=== PATIENT | male | born 1945 | race Caucasian/White ===

== ENCOUNTER 2016-07-28 15:00 | Inpatient (IN) | payer MEDICARE, BC ==
[~2016-07-28] VITALS: Ht 177.8 cm; Wt 98.0 kg
--- NOTE | ~2016-07-28 | ECHO ---
Transthoracic Echocardiography Report (TTE) Demographics Patient Name DHIRAJ RAMIREZ Date of Study 08/02/2016 Patient Number [id number] Visit Number [id number] Date of 1945 Room Number G6399 Accession Number [id number] Gender Male Age 70 year(s) Referring Aretha Geiger Corrective Therapy Aide Teacher Teresa Agustin RVT, Physician RDCS Physician Interpreting Sammy Guerrero Database Administration Associate Physician MD Supervising Ordering Physician Sammy Guerrero MD/MLP Nurse Stress Sound Assistant Conclusions Contractility Score Summary Normal Left Ventricular contractility was noted. Summary The estimated left ventricular ejection fraction is 55% with normal WM and internal dimension.Mild concentric left ventricular hypertrophy. The left atrium is moderately dilated. The right atrium is mildly dilated. Increased pressures in the atria. The aortic valve is moderately sclerotic. There is mild aortic regurgitation by color Doppler. Mild tricuspid regurgitation by color Doppler. There is moderate pulmonary hypertension. The pulmonary pressure (RVSP) is 45 mmHg. The ascending aorta appears mildly dilated. The maximum diameter measures 3.9 cm. Procedure Type of Study TTE procedure:2D Echocardiogram. Procedure Date Date: 08/02/2016 Start: 09:10 AM Study Location: Inpatient Portable Technical Quality: Adequate visualization Indications:Atrial fibrillation. Appropriate Use Criteria: 9 Patient Status: Routine Rhythm: Atrial fibrillation HR: 66 bpm BP: 138/77 mmHg M-Mode/2D Measurements LV Diastolic Dimension: 4.81 cm LV Systolic Dimension: 3.49 cm LV Septum Diastolic: 1.33 cm LV PW Diastolic: 1.33 cm AO Root Dimension: 3.3 cm Cardiac Output: 3.27 l/min AV Cusp Separation: 1.6 cm RV Diastolic Dimension: 3.47 cm LA volume: 90 ml LVOT: 2.1 cm RV Base: 3.78 cm LVOT VTI: 14.3 cm RV Mid: 3.56 cm LV Stroke volume: 49.5 ml TAPSE: 2.22 cm TDI-S': 12.1 cm/s Doppler Measurements AV Peak Velocity: 1.36 m/s MV Peak E-Wave: 1.04 m/s AV Peak Gradient: 7.4 mmHg AV Mean Gradient: 5 mmHg LVOT Peak Velocity: 0.65 m/s PV Peak Velocity: 1.01 m/s TR Velocity:3.05 m/s PV Peak Gradient: 4.08 mmHg TR Gradient:37.21 mmHg Estimated PASP: 45.21 mmHg Estimated RAP:8 mmHg A' Lateral Velocity: 0.06 m/s Estimated RVSP: 45 mmHg E' Septal Velocity: 0.11 m/s E' Lateral Velocity: 0.15 m/s Findings Left Ventricle Mild concentric left ventricular hypertrophy with normal internal dimensions,EF and WM. Right Ventricle Normal right ventricle structure and function. Left Atrium The left atrium is moderately dilated. There is no evidence of patent foramen ovale or atrial septal defect by color Doppler. Increased LA pressures. Right Atrium The right atrium is mildly dilated. Dilated IVC with poor inspiratory collapse consistent with elevated RA pressure. Mitral Valve Normal mitral valve structure and function. Trivial mitral regurgitation by color Doppler. Aortic Valve The aortic valve is moderately sclerotic. There is mild aortic regurgitation by color Doppler. Tricuspid Valve Mild tricuspid regurgitation by color Doppler. There is moderate pulmonary hypertension. The pulmonary pressure (RVSP) is 45 mmHg. Pulmonic Valve Normal pulmonic valve structure and function. Trivial pulmonic valve regurgitation by color Doppler. Pericardial Effusion No evidence of pericardial effusion. Miscellaneous The ascending aorta appears mildly dilated. The maximum diameter measures 3.9 cm. Pleural Effusion No evidence of pleural effusion. Contractility Score LV regional wall motion:(0-Non visualized 1-Normal 2-Hypokinesis 3-Akinesis 4-Dyskinesis 5-Aneurysm) Signature dtt: Yolanda Christianson dtd: 08/02/16 0910 Physician Self Edit
--- NOTE | ~2016-07-28 | ESTC ---
Cardiac Perfusion Imaging Demographics Patient Name JAMES Briones JR Gender Male Patient Number [id number] Race Visit Number [id number] Ethnicity Corporate ID Room Number G6399 Accession Number [id number] Height 70 inches Date of 1945 Weight 216 pounds Interpreting Sammy Guerrero Date of study 08/02/2016 Physician Supervising /AMINAH Guerrero NM Technologist Poppy Kenney MD Ordering Physician Sammy Guerrero Stress Teresa Agustin RVT, MD hvac refrigeration technician RDCS Stress ECG Reading Sammy Guerrero Nurse Rosalio Robbins RN Physician Procedure Admit Source:Other. Procedure Type: Nuclear Stress Test:Cardiolite Stress Test Procedure Start time: 08/02/2016 09:40 Indications: Atrial fibrillation. Risk Factors The patient risk factors include:physical activity, former tobacco use, treated hypercholesterolemia, treated hypertension, orally-treated diabetes mellitus and ( years not smokin). Conclusions Summary Inferior large moderate to severe fixed defect at least the basal third of which is most consistent prior AK. No ischemia. Normal EF and moderate hypokinesia of the basal third of the inferior wall. Stress Protocols Resting ECG A fib with cvr. Pre-stress physical exam: Un changed. Predicted HR: 151 bpm ECG Findings No ECG changes suggestive of ischemia. Arrhythmias No rhythm abnormality. Symptoms Flushed. SOB. Dizziness. Stress Interpretation Lexiscan cardiolite study with hypertensive response. Baseline afib with no other arrythmias. No ischemia. Imaging Results High risk findings Summed scores - Summed stress score: 8 - Summed rest score: 10 - Summed difference score: -2 Stress ejection Ejection fraction:59 % EDV :161 ml ESV :66 ml Stroke volume :95 ml LV mass :195 gr LV size:Enlarged LV Normal LV function Imaging Protocols Rest Stress Isotope:Tc99m Sestamibi IV Isotope: Tc99m Sestamibi IV Isotope dose:14.7 mCi Isotope dose:42.7 mCi Date:08/02/2016 10:05 Date:08/02/2016 11:48 Technique: SPECT Technique: Gated Supine SPECT Supine IV remains in place after procedure. Scan Time:45-60 minutes post Scan Time:45-60 minutes post injection injection Procedure Medications - Regadenoson (Lexiscan) 0.4 mg IV over 10-15 sec. I.V. 0.4 mg. Medical History Admission Data Admission date: 08/02/2016 Admission Time: 05:44 Hospital Status: Inpatient. Signatures dtt: Yolanda Christianson dtd: 08/02/16 0940 Physician Self Edit
--- NOTE | ~2016-07-28 | CON ---
PATIENT'S NAME: JAMES [facility] AGE: 70 Y [address] ROOM: G6399 [place], [place] [address] LOCATION: [facility] ADMIT DATE: 08/02/2016 Consultation DISCHARGE DATE: FAMILY PHYSICIAN: Kelton Carias MD ATTENDING PHYSICIAN: LING NICHOLSON DATE OF CONSULTATION: 08/02/2016 REFERRING PHYSICIAN: Alpesh Fregoso, DO A patient of Dr. Kelton Carias. Mr. Paez is a 70-year-old, male patient who was in the preop clinic for nephrectomy and biopsy of mediastinal mass by Dr. Fregoso. He was found to be in atrial fibrillation with controlled ventricular response and I was consulted regarding that. The patient is totally asymptomatic of the atrial fibrillation and does not know that he is in atrial fibrillation at this time. He denies [place] or angina or nitroglycerin use. There is no history of rheumatic fever, heart murmur, heart failure, dilated or enlarged heart, or any diagnosed arrhythmias up until now. The patient has history of hypertension, type 2 diabetes, elevated cholesterol. He denies tobacco abuse or family history of premature coronary artery disease. The patient denies any chest pains. 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 Prior to that, he has been limited by the left knee, which has been replaced about a couple years ago. It appears as if he walks at the most at his own pace 2-3 blocks without any problems of chest pains or shortness of breath. Going up a flight of stairs sometime makes him short of breath. Currently, he is in functional class 2-3. There is no paroxysmal nocturnal dyspnea or orthopnea. He denies lightheadedness, dizziness syncope, presyncope, palpitations, or ankle swelling. He also has gout. MEDICATIONS: 1. Allopurinol 300 mg a day. 2. Theophylline 400 mg every morning. 3. Celebrex 200 mg a day. 4. Tamsulosin 0.4 mg a day. 5. Metformin 1 g b.i.d. PATIENT'S NAME: JAMES [facility] AGE: 70 Y [address] ROOM: [place] [address] LOCATION: [facility] ADMIT DATE: 08/02/2016 Consultation DISCHARGE DATE: FAMILY PHYSICIAN: Kelton Carias MD ATTENDING PHYSICIAN: LING NICHOLSON 6. Propranolol 10 mg once a day. 7. Atorvastatin 10 mg a day. ALLERGIES: NO KNOWN ALLERGIES. PAST MEDICAL HISTORY: 1. Ascending thoracic aneurysm 4.4 x 4.4 cm. 2. Right renal cancer. 3. Right lower lung lobe nodule. 4. Patient currently chews tobacco. 5. Total knee replacement on the left. 6. Neck surgery. 7. Tonsillectomy. 8. Intentional tremor. 9. DJD. 10. Asthma. 11. Cervical disc disease. 12. Chronic low back pain. 13. Colonic polyps. 14. Constipation. 15. Gout. SOCIAL HISTORY: The patient is . He denies abusing alcohol. His appetite and weight have been stable. Sleep is fair. FAMILY HISTORY: No premature coronary artery disease. REVIEW OF SYSTEMS: A 12-point review of systems revealed the following positives: 1. Intermittent headaches. 2. Corrective lenses. 3. The patient wears hearing aids. 4. DJD. PHYSICAL EXAMINATION: VITAL SIGNS: On examination, his blood pressure is 130/80, heart rate is in the 60s and 70s and irregular, respirations 18, afebrile. HEENT: Normal. NECK: Supple with no JVD, thyromegaly, lymphadenopathy, or carotid bruit. CARDIAC: PMI is not well located. First and second heart sounds are irregular. There are no added sounds or murmurs. CHEST: Clear to auscultation. PATIENT'S NAME: DHIRAJ PAEZ [facility] AGE: 70 Y [address] ROOM: [address] [address] LOCATION: [facility] ADMIT DATE: 08/02/2016 Consultation DISCHARGE DATE: FAMILY PHYSICIAN: Kelton Carias MD ATTENDING PHYSICIAN: LING NICHOLSON ABDOMEN: Soft and obese. EXTREMITIES: Reveal no edema. CENTRAL NERVOUS SYSTEM: Intact. ASSESSMENT: Preop evaluation for atrial fibrillation with controlled ventricular response of which he is completely asymptomatic. His CHADS2-VASc score is 3 at this time. He has renal mass for which he is here for nephrectomy and is also getting a biopsy of the mediastinal mass. We will obtain his echocardiogram, TSH, proBNP, D-dimer, and troponin and also I will go ahead and get a Lexiscan Cardiolite study done if the troponins are negative. Again, I appreciate this opportunity to participate in the care of Mr. Paez. The reason for the stress test is because of the preop evaluation for intermediate risk surgery and his functional capacity is less than 4 METS and he is mildly short of breath. MD PATIENCE SMART/paul /[id number] d: 08/02/165 t: 08/03/16 1901, CONSULTATION REPORT
[~2016-07-28 15:00] MED LIST: CELEBREX200 MG PO; FLOMAX0.4 MG PO; GLUCOPHAGE1000 MG PO; INDERAL10 MG PO; LIPITOR40 MG PO; THEOPHYLLINE400 MG PO; ZYLOPRIM300 MG PO
[2016-08-02 06:13] LABS: BASOPHIL % 0.5 %; EOSINOPHIL # 0.2 K/uL (0.0-0.5); EOSINOPHIL % 3.3 %; HEMATOCRIT 38.6 % (37.0-53.0); HEMOGLOBIN 12.8 g/dL (11.0-16.0); IMMATURE GRANULOCYTE % 0.4 %; LYMPHOCYTE # 1.5 K/uL (0.8-4.0); LYMPHOCYTE % 26.1 %; MCH 28.8 pg (27.0-34.0); MCHC 33.2 gm/dL (32.0-36.5); MCV 86.9 fl (83.0-98.0); MONOCYTE # 0.5 K/uL (0.0-1.0); MONOCYTE % 7.9 %; MPV 10.8 fl (9.4-12.4); NEUTROPHIL # (ANC) 3.5 K/uL (1.4-9.0); NEUTROPHIL % 61.8 %; NRBC % 0 /100WBC (0-0.00); PLATELET COUNT 173 K/uL (150-450); RBC 4.44 M/uL (3.50-5.50); RDW-CV 12.7 % (11.9-14.6); WBC 5.7 K/uL (4.0-11.0)
[2016-08-02 06:33] LABS: ALBUMIN 3.9 gm/dL (3.5-5.0); ANION GAP 11.1 (10.0-19.0); CALCIUM 9.2 mg/dL (8.5-10.5); CREATININE 1.2 mg/dL (0.6-1.3); POTASSIUM 4.1 mMol/L (3.7-5.1); TOTAL BILIRUBIN 0.6 mg/dL (0.0-1.5); TOTAL PROTEIN 7.2 g/dL (6.0-8.4)
--- NOTE | 2016-08-02 14:58 | NUR ---
d: pt to nuclear med x 2 for cardiolite studies per wheelchair. takes po food/fluids. family at side. updated at intervals. awaiting Dr. Christianson to interpret scan and determine disposition of patient.
[2016-08-02] MEDS ORDERED: ALDACTONE25 MG PO (17:29)
[2016-08-02] MEDS ORDERED: COMBIVENT RESPIM4 GM INH (17:31)
== END 2016-08-02 17:52 | disposition disaster alternative care site (69) | DRG 310 ==
LOC: GPCU 08-02 05:44
PROVIDERS: ADMIT Urology
DX: I48.91 Unspecified atrial fibrillation (principal); I10 Essential (primary) hypertension; N28.89 Other specified disorders of kidney and ureter; E11.9 Type 2 diabetes mellitus without complications; F17.220 Nicotine dependence, chewing tobacco, uncomplicated; M10.9 Gout, unspecified; Z79.84 Long term (current) use of oral hypoglycemic drugs; I51.7 Cardiomegaly; J98.01 Acute bronchospasm
CPT/HCPCS: A9500; J0690; J2001; J2785; J7030

== ENCOUNTER 2016-08-05 11:00 | Inpatient (IN) | payer MEDICARE, BC ==
[~2016-08-05] VITALS: Ht 177.8 cm; Wt 102.3 kg
--- NOTE | ~2016-08-05 | CON ---
PATIENT'S NAME: DHIRAJ PAEZ [facility] AGE: 70 Y [address] ROOM: [place] [address] LOCATION: [facility] [place] ADMIT DATE: 08/09/2016 Consultation DISCHARGE DATE: 08/13/2016 FAMILY PHYSICIAN: Kelton Carias MD ATTENDING PHYSICIAN: Alfredo Pierce DATE OF CONSULTATION: 08/09/2016 REFERRING PHYSICIAN: Hector Steele MD HISTORY OF PRESENT ILLNESS: Mr. Paez is a 70-year-old male patient whom I saw on the when he came in for pre-nephrectomy for renal mass and mediastinal biopsy by Dr. Fregoso. At that time, he was found to be in atrial fibrillation with controlled ventricular response. His evaluation revealed elevated D-dimer with no evidence of PE on his CT chest. His proBNP was elevated a little bit. In addition, he also had a normal TSH and normal ejection fraction without any wall motion abnormalities. The patient had history of hypertension, type 2 diabetes, and elevated cholesterol. Obviously, he had some evidence of sick sinus syndrome because he was in controlled ventricular response without any AV peter blocking agents. His [id number] score was 3. He also has gout. He was discharged home with his usual medications which were: 1. Allopurinol 300 mg a day. 2. Theophylline 400 mg every morning. 3. Tamsulosin 0.4 mg. 4. Metformin 1 g b.i.d. 5. Discontinue Celebrex. 6. Propranolol 10 mg a day. 7. Atorvastatin 40 mg a day, which was an increased does. 8. I had added on Aldactone because of the elevated proBNP. ALLERGIES: HE HAD NO KNOWN ALLERGIES. PAST MEDICAL HISTORY: Includes: 1. Ascending thoracic aortic aneurysm, 4.4 x 4.4 cm. 2. Right renal cancer. PATIENT'S NAME: DHIRAJ PAEZ [facility] AGE: 70 Y [address] ROOM: [place] [address] LOCATION: [facility] [place] ADMIT DATE: 08/09/2016 Consultation DISCHARGE DATE: 08/13/2016 FAMILY PHYSICIAN: Kelton Carias MD ATTENDING PHYSICIAN: Alfredo Pierce 3. Right lower lobe nodule. 4. Currently, the patient chews tobacco. 5. Total knee replacement on the left. 6. Neck surgery. 7. Tonsillectomy. 8. Intentional tremor. 9. DJD. 10. Asthma. 11. Cervical disk disease. 12. Chronic low back pain. 13. Colonic polyps. 14. Constipation. SOCIAL HISTORY: The patient is . He denies abusing alcohol. His appetite and weight have been stable. Sleep is fair. FAMILY HISTORY: No premature coronary artery disease. REVIEW OF SYSTEMS: 1. Hearing aids. 2. DJD. 3. Corrective lenses. 4. Intermittent headaches. PHYSICAL EXAMINATION: VITAL SIGNS: On examination, his blood pressure is 160/80, heart rate is in the 60s and irregular, respiration rate is 18, and afebrile. HEENT: Normal. NECK: Supple with no JVD, thyromegaly, lymphadenopathy, or carotid bruit. CARDIAC: PMI is not well located. First and second heart sounds are irregular. There are no added sounds or murmurs. CHEST: Clear to auscultation. ABDOMEN: Soft, obese. EXTREMITIES: No edema. CENTRAL NERVOUS SYSTEM: Intact. ASSESSMENT: A 70-year-old diabetic patient with thoracic aortic aneurysm and history of atrial fibrillation with controlled ventricular response with just 10 mg of propranolol, consistent with sick sinus syndrome as well. I had increased his atorvastatin to 40 mg a day and added on Aldactone because of the elevated proBNP. PATIENT'S NAME: DHIRAJ PAEZ [facility] AGE: 70 Y [address] ROOM: [place] [address] LOCATION: [facility] [place] ADMIT DATE: 08/09/2016 Consultation DISCHARGE DATE: 08/13/2016 FAMILY PHYSICIAN: Kelton Carias MD ATTENDING PHYSICIAN: Alfredo Pierce He was kept off anticoagulation even though his [id number] score was 3 because the surgery was coming up quite quickly. Once the surgery is done, he will be placed on an oral anticoagulation for indefinite use for now unless he has a problem that arises in the future. Again, I appreciate this opportunity to participate in the care of Mr. Paez. His surgeons, when they are ready to have him take his oral anticoagulation, I will get him started on one depending on their wishes and after discussing with them. MD PATIENCE SMART/paul /[id number] d: 08/17/16 1913 t: 08/29/16 1605, CONSULTATION REPORT
--- NOTE | ~2016-08-05 | DS ---
PATIENT'S NAME: JAMES DHIRAJ Anali [facility] AGE: 70 Y [address] ROOM: [place] [address] [place] [facility] [place] DATE: 08/09/2016 Discharge Summary DISCHARGE DATE: 08/13/2016 FAMILY PHYSICIAN: Kelton Carias MD ATTENDING PHYSICIAN: Ling Pierce ADMISSION DIAGNOSES: 1. Right renal mass. 2. Mediastinal adenopathy. 3. Lung nodules. DISCHARGE DIAGNOSES: 1. Right renal mass. 2. Mediastinal adenopathy. 3. Lung nodules. REASON FOR HOSPITALIZATION: The patient is a pleasant 70-year-old male with history of right renal mass as well as mediastinal adenopathy and lung nodules concerning for possible metastasis. After discussing with the patient his options along with the risks, benefits, indications, and alternatives, the patient wished to proceed with a cytoreductive nephrectomy. PROCEDURES PERFORMED: 1. Cytoreductive right hand-assisted laparoscopic radical nephrectomy by Dr. Pierce. 2. Mediastinoscopy by Dr. Steele. 3. Bronchoscopy with endobronchial ultrasound, fine needle aspiration of lymph nodes, and bronchioalveolar lavage of left lower lobe by Dr. Turner. HOSPITAL COURSE: The patient was admitted on the above date and underwent the above-stated procedures without complication. The patient had a relatively uneventful hospital course. Prior to his discharge, he was passing flatus and tolerating regular diet. His pain was well controlled and he was ambulating without difficulty. CONDITION: Condition of the patient on discharge good. DISCHARGE INSTRUCTIONS: The patient did receive routine discharge instructions for the above procedures he underwent. LING PIERCE MD PATIENT'S NAME: JAMES DHIRAJ Anali [facility] AGE: 70 Y [address] ROOM: [place] [address] [place] [facility] [place] DATE: 08/09/2016 Discharge Summary DISCHARGE DATE: 08/13/2016 FAMILY PHYSICIAN: Kelton Carias MD ATTENDING PHYSICIAN: Ling Pierce GP/modl /[id number] d: 08/20/16 0245 t: 08/25/16 1513, DISCHARGE SUMMARY
--- NOTE | ~2016-08-05 | OR ---
PATIENT'S NAME: JAMES [facility] AGE: 70 Y [address] ROOM: [place] [address] LOCATION: [facility] [place] ADMIT DATE: 08/09/2016 OR/Procedure Report DISCHARGE DATE: FAMILY PHYSICIAN: Kelton Carias MD ATTENDING PHYSICIAN: LING NICHOLSON SURGEON: Wicho Turner MD DATE OF PROCEDURE: 08/12/2016 PROCEDURE CABLE INSTALLER REPAIRER: Verna Crowe, microelectronics technician. PROCEDURES PERFORMED: 1. Bronchoscopy with endobronchial ultrasound and fine-needle aspiration of 3 lymph node stations. 2. Bronchoscopy with bronchoalveolar lavage of the left lower lobe. INDICATIONS AND PREPROCEDURE DIAGNOSES: 1. Mediastinal adenopathy. 2. Lung nodule. 3. Renal cell carcinoma, status post nephrectomy. 4. History of neck surgery. 5. Cough. 6. Asthma. POSTPROCEDURE DIAGNOSES: 1. Mediastinal adenopathy. 2. Lung nodule. 3. Renal cell carcinoma, status post nephrectomy. 4. History of neck surgery. 5. Cough. 6. Asthma. CONSENT: Consent was obtained from the patient after all the indications, risks, benefits, and alternatives were explained at length. The patient verbalized understanding and signed an informed consent. DESCRIPTION OF PROCEDURE: The patient was taken to the endoscopy suite. Direct laryngoscopy done by the anesthesia team did not show adequate visualization of the vocal cords. That was most likely related to the previous neck surgery that the patient had had. For this reason, I advanced the endotracheal tube through the bronchoscope after I was able to advance the bronchoscope through the vocal cords into the distal trachea. The endotracheal tube was secured in place with the tip approximately 3 cm above the trevor. Afterwards, I performed a diagnostic bronchoscopy that showed a small amount of secretions in the distal trachea with moderate amount of PATIENT'S NAME: JAMES, [facility] AGE: 70 Y [address] ROOM: [place] [address] LOCATION: [facility] [place] ADMIT DATE: 08/09/2016 OR/Procedure Report DISCHARGE DATE: FAMILY PHYSICIAN: Kelton Carias MD ATTENDING PHYSICIAN: LING NICHOLSON secretions in the distal bronchial trees, especially in the left lower lobe. I suctioned all secretions that were light yellow in appearance. Afterwards, I performed a bronchoalveolar lavage from the left lower lobe. 60 mL of sterile saline was instilled, with return of 20 mL of slightly cloudy bronchoalveolar lavage fluid. There was no evidence of any endobronchial lesion down to the subsegmental level. The [id number] bronchoscope was withdrawn, and the bronchoscope with endobronchial ultrasound was advanced into the trachea and both bronchial trees. There were evidence of large mediastinal nodes in the paratracheal, subcarinal, and right hilar lymph node stations. I performed fine-needle aspiration with direct ultrasound guidance from these 3 stations. There was a small amount of bleeding at times that stopped without any further intervention. A total of 8 fine-needle aspirations were performed from these 3 lymph node stations. At the end of the procedure, I withdrew the bronchoscope with endobronchial ultrasound and performed another diagnostic bronchoscopy. The patient had minimal amount of blood clots, but without any active bleeding. The blood clots were suctioned using small saline aliquots at times. Again, there was no evidence of active bleeding at the end of the procedure. The bronchoscope was withdrawn, and the patient was returned to the anesthesia team for further management. COMPLICATIONS: None. ESTIMATED BLOOD LOSS: Less than 10 mL. SPECIMENS: The fine-needle aspirates will be sent for cytology examinations. Please note that a cytology photonics engineering technician was present in the room and reviewed a few fine-needle aspirates. She could not identify any malignant cells. The bronchoalveolar lavage will be sent for cytology and microbiology studies. MD VIDYA SERVIN/anaidl /[id number] d: 08/12/16 1509 t: 08/13/16 1154, OPERATIVE SUMMARY
--- NOTE | ~2016-08-05 | CON ---
PATIENT'S NAME: DHIRAJ RAMIREZ [facility] AGE: 70 Y [address] ROOM: [place] [address] LOCATION: [facility] ADMIT DATE: 08/09/2016 Consultation DISCHARGE DATE: 08/13/2016 FAMILY PHYSICIAN: Kelton Carias MD ATTENDING PHYSICIAN: Alfredo Pierce DATE OF CONSULTATION: 08/10/2016 REFERRING PHYSICIAN: Hector Steele MD INDICATION: Mediastinal adenopathy. HISTORY OF PRESENT ILLNESS: This is a 70-year-old male, who was admitted for renal mass and is status post right nephrectomy and also mediastinoscopy for mediastinal adenopathy. He had initially presented for hematuria and treated for an infection, and follow up with his primary care physician. A CT of the chest, pelvis, and abdomen was performed. CT of the chest noted on August 02, 2016, several scattered pulmonary nodules with mediastinal and hilar adenopathy. The mediastinoscopy was performed and unable to obtain biopsies. We are being asked to perform a bronchoscopy with endobronchial ultrasound, to obtain biopsies of the mediastinal node as there is concern for malignancy. Currently, the patient is on postop day 1 and denies any cough. He reports an occasional wheeze. He has mild shortness of breath secondary to postop pain which is fairly well controlled at this point. He denies any chest pain, hemoptysis, or edema. He denies any history of tobacco use. He does have a history of asthma since he was a child. He reports receiving an inhaler last week, but is unsure of which one. He has taken theophylline from several years. He denies any history of asthma exacerbations or hospital stays. He has never required intubation. PAST MEDICAL HISTORY: Includes diabetes, hyperlipidemia, gout, and asthma. ALLERGIES: SEE MAR. MEDICATIONS: See MAR. FAMILY HISTORY: The patient has a known family history of ovarian cancer in a sister. He denies any lung disease or heart disease. SOCIAL HISTORY: PATIENT'S NAME: DHIRAJ RAMIREZ [facility] AGE: 70 Y [address] ROOM: [place] [address] LOCATION: [facility] ADMIT DATE: 08/09/2016 Consultation DISCHARGE DATE: 08/13/2016 FAMILY PHYSICIAN: Kelton Carias MD ATTENDING PHYSICIAN: Alfredo Pierce The patient is retired. He denies any alcohol or tobacco use. REVIEW OF SYSTEMS: A 12-point review of systems is negative except for what is noted in the HPI. PHYSICAL EXAMINATION: VITAL SIGNS: Blood pressure 122/68, pulse 80, respirations 16, temperature 98.7, he is 92% on room air. GENERAL: This is a 70-year-old male, who is well developed, well nourished, alert, and oriented x3, and appears in no acute distress at the time of exam. HEENT. Head: Normocephalic, atraumatic. Eyes: Clear. NECK: Supple. No adenopathy. No carotid bruits or JVD. Lungs: Few anterior wheezes. No rales. HEART: Regular rate and rhythm without murmur, gallop, or rub. ABDOMEN: Soft, nontender, nondistended. Bowel sounds x4. EXTREMITIES: No cyanosis, clubbing, or edema. DIAGNOSTIC DATA: Includes sodium 139, potassium 4.3, BUN 19, creatinine 1.4. WBC 9, hemoglobin 11.5, hematocrit 35.6, platelets 159. ASSESSMENT: 1. Mediastinal and hilar adenopathy suspicious for malignancy. 2. Lung nodules, question malignant. 3. Right renal mass, status post nephrectomy, likely malignant. 4. Status post right nephrectomy postop day 1. 5. Asthma with some noted wheezing on exam, but no other signs of exacerbation. PLAN: We will plan for a bronchoscopy with EBUS on if recovery from nephrectomy is going well. In the meantime, we will start him on DuoNeb every 4 hours as well as Dulera 100/5 two puffs b.i.d. for his asthma symptoms. We will stop the Combivent and make further recommendations pending the course of his stay. Thank you for the consult and the opportunity to participate in the patient's care. SONALI BAI APRN FOR KENNA BABIN MD [facility] [place] PATIENT'S NAME: DHIRAJ RAMIREZ [facility] AGE: 70 Y [address] ROOM: [address] [place], [place] [address] LOCATION: [facility] ADMIT DATE: 08/09/2016 Consultation DISCHARGE DATE: 08/13/2016 FAMILY PHYSICIAN: Kelton Carias MD ATTENDING PHYSICIAN: Alfredo Pierce /[id number] d: 08/16/16 2242 t: 08/18/16 1143, CONSULTATION REPORT
--- NOTE | ~2016-08-05 | OR ---
PATIENT'S NAME: DHIRAJ RAMIREZ [facility] AGE: 70 Y [address] ROOM: [place] [address] LOCATION: [facility] ADMIT DATE: 08/09/2016 OR/Procedure Report DISCHARGE DATE: FAMILY PHYSICIAN: Kelton Carias MD ATTENDING PHYSICIAN: LING PIERCE SURGEON: Ling Pierce MD MACHINE CEMENTER: Raúl Chávez MD. DATE OF PROCEDURE: 08/09/2016 PREOPERATIVE DIAGNOSIS: Right renal mass. POSTOPERATIVE DIAGNOSIS: Right renal mass. OPERATION PERFORMED: Cytoreductive right hand-assisted laparoscopic radical nephrectomy. INDICATIONS FOR PROCEDURE: The patient is a pleasant 70-year-old male who was recently found to have a right renal mass as well as concern for possible metastasis to his mediastinum. The patient was explained the risks, benefits, indications, and alternatives to above procedure and wished to proceed and consented freely. ANESTHESIA: General. COMPLICATIONS: None. DRAINS: Indwelling Arriaza catheter to gravity drainage. ESTIMATED BLOOD LOSS: 250 mL. DESCRIPTION OF OPERATION: After the induction of excellent general anesthesia, the patient was then kept in the supine position. A surgical time- out was called where the patient identification, surgical site, and procedure was then verified. We also did verify that the patient received an IV cephalosporin antibiotic within an hour of beginning the procedure. The patient was then carefully positioned in the modified right flank position and the right lower quadrant incision was made after he was prepped and draped in usual sterile fashion. We deepened this until we identified his fascia and we were able to enter the peritoneal sharply. We then placed the GelPort assist device into this area and insufflated the abdomen. We placed a 12 mm trocar just lateral to his umbilicus as well as two 5 mm trocars in the upper right epigastrium. These were all entered into the abdomen under direct vision. We carefully surveyed the abdomen, and there was no gross abnormalities detected nor was there any evidence of injury to his abdominal contents with entry into his abdomen with the ports and GelPort. I began by mobilizing his ascending PATIENT'S NAME: DHIRAJ RAMIREZ [facility] AGE: 70 Y [address] ROOM: [place] [address] LOCATION: [facility] ADMIT DATE: 08/09/2016 OR/Procedure Report DISCHARGE DATE: FAMILY PHYSICIAN: Kelton Carias MD ATTENDING PHYSICIAN: LING PIERCE colon and peritoneum. This was swept medially and we continued in this plane until I was able to identify the gonadal vein. I did kocherize the duodenum. It did appear that his gonadal vein was entering into his right renal vein. I divided his gonadal vein. I then carefully dissected along this plane until I was able to identify his renal vein with what appeared to be a main renal artery as well as upper pole renal artery. The arteries and renal vein were divided with a laparoscopic stapling device. I then continued to mobilize the kidney and then divided the ureter. The kidney was completely freed up and was removed through the GelPort site and sent for pathologic analysis. I then reinspected for hemostasis, which was excellent. The 12 mm port site was then closed with a Chano-Gladys needle carriers. I then closed the rectus fascia in a running fashion with a looped 0 PDS suture. The subcutaneous tissues were then reapproximated with a Vicryl suture and all wounds had been irrigated and infiltrated with Marcaine local anesthetic. I then closed the skin with subcuticular 4-0 Monocryl suture. The wounds were then covered with Dermabond. The patient was then taken out of the modified lateral position and placed back supine, where he then underwent a mediastinal biopsy by Cardiothoracic Surgery. Please see their operative note for that portion of the procedure. The patient had then been woken from general anesthesia, extubated, and transferred to recovery bed and transported to the recovery room in good condition. FOLLOWUP PLAN: We will plan to admit the patient overnight for observation with likely discharge home on postoperative day #2, once he is passing flatus and pain is well controlled. LING PIERCE MD GP/modl /[id number] CC: Kelton Carias MD d: 08/09/16 1458 t: 08/19/16 1102, OPERATIVE SUMMARY
--- NOTE | ~2016-08-05 | OR ---
PATIENT'S NAME: DHIRAJ RAMIREZ [facility] AGE: 70 Y [address] ROOM: [place] [address] LOCATION: [facility] ADMIT DATE: 08/09/2016 OR/Procedure Report DISCHARGE DATE: FAMILY PHYSICIAN: Kelton Carias MD ATTENDING PHYSICIAN: LING NICHOLSON SURGEON: Hector Steele MD TOWER CLEANER: Saloni Garrett. DATE OF PROCEDURE: 08/09/2016 RE-DICTATION PREOPERATIVE DIAGNOSIS: Renal-cell carcinoma with mediastinal adenopathy. POSTOPERATIVE DIAGNOSIS: Renal-cell carcinoma with mediastinal adenopathy. PROCEDURE: Mediastinoscopy. ANESTHESIA: General endotracheal. FINDINGS: See below. DESCRIPTION OF PROCEDURE: Small transverse incision was made just above the sternal notch and carried down in the midline to the tracheal fascia. This plane was then dissected bluntly inferiorly with the digit. Once there was adequate room, then the mediastinal scope was inserted and dissection was continued with cautery at the end of a suction aspirator. I was able to get beyond the level of the innominate artery to the right side but just barely. I was not able to dissect further. No peter tissue was seen to biopsy either anterior to or to the right of the mediastinum at this level. By CT, the lesion was at the level of the aorta and I was not this far down. Because I could not dissect further, I withdrew the scope. Hemostasis was good and the wound was closed in layers in standard fashion. MD HERSON MCKEON/modl /[id number] d: 08/12/16 1353 t: 08/13/16 0822, OPERATIVE SUMMARY
[~2016-08-05 11:00] MED LIST changes: +ALDACTONE25 MG PO; +COMBIVENT RESPIM4 GM INH
[2016-08-09 06:48] LABS: BASOPHIL % 0.7 %; EOSINOPHIL # 0.2 K/uL (0.0-0.5); EOSINOPHIL % 3.4 %; HEMATOCRIT 39.3 % (37.0-53.0); HEMOGLOBIN 12.9 g/dL (11.0-16.0); IMMATURE GRANULOCYTE % 0.3 %; LYMPHOCYTE # 1.4 K/uL (0.8-4.0); LYMPHOCYTE % 22.9 %; MCH 28.5 pg (27.0-34.0); MCHC 32.8 gm/dL (32.0-36.5); MCV 86.8 fl (83.0-98.0); MONOCYTE # 0.5 K/uL (0.0-1.0); MONOCYTE % 7.6 %; MPV 11.3 fl (9.4-12.4); NEUTROPHIL % 65.1 %; NRBC % 0 /100WBC (0-0.00); PLATELET COUNT 169 K/uL (150-450); RBC 4.53 M/uL (3.50-5.50); RDW-CV 12.5 % (11.9-14.6); WBC 6.2 K/uL (4.0-11.0)
[2016-08-09 07:04] LABS: ALBUMIN 3.8 gm/dL (3.5-5.0); ALK PHOS 79 IU/L (33-138); ALT 27 IU/L (12-78); ANION GAP 12.2 (10.0-19.0); AST 18 IU/L (10-40); BLOOD UREA NITROGEN 19 mg/dL (6-24); CALCIUM 9.2 mg/dL (8.5-10.5); CHLORIDE 109 mMol/L (96-110); CO2 26 mMol/L (22-32); ESTIMATED GFR (MDRD EQUATION) > 60; POTASSIUM 4.2 mMol/L (3.7-5.1); SODIUM 143 mMol/L (135-145); TOTAL BILIRUBIN 0.5 mg/dL (0.0-1.5); TOTAL PROTEIN 7.2 g/dL (6.0-8.4)
--- NOTE | 2016-08-09 16:58 | NUR ---
Patient arrived to the floor at 1635. Most of the surgical vital signs have been done in PACU, only 2 hourly and the Q4 hours left. Arriaza is patent with bloody urine, orders to remove tomorrow at 0600. R) incisions and lap incisions are glued. The neck dressing is guaze and tegaderm, clean, dry and intact. Clear liquid diet, can advance as tolerated. IVs bilaterally to forearms with R) saline locked, L) infusing, can be saline locked tomorrow if tolerating PO. Ambulate x5/day. Has not been up in PACU. ACHS accuchecks. 2L O2.
--- NOTE | 2016-08-10 04:41 | NUR ---
Significant Event: Patient alert and oriented X 4. Up in halls X1, tolerated well. Vitals stable and on room air. Arriaza patent, will pull at 0550. [place] given about every 4 hours. Patient is using IS often. Dressing to neck clean, intact. Incisino and 3 lap sites glued together. Tolerating clear liquid diet. ACHS accuchecks. Supposed to saline lock this am, hung a new bag around 0300, and can saline lock after that. Last norco given at 0250. Slept on and off this shift. Cooperative with cares. Follow up: Monitor pain
[2016-08-10 05:22] LABS: BASOPHIL % 0.1 %; EOSINOPHIL % 0.3 %; HEMATOCRIT 35.6 % (37.0-53.0); HEMOGLOBIN 11.5 g/dL (11.0-16.0); IMMATURE GRANULOCYTE % 0.2 %; LYMPHOCYTE # 0.9 K/uL (0.8-4.0); LYMPHOCYTE % 9.5 %; MCH 28.3 pg (27.0-34.0); MCHC 32.3 gm/dL (32.0-36.5); MCV 87.7 fl (83.0-98.0); MONOCYTE # 0.9 K/uL (0.0-1.0); MONOCYTE % 9.8 %; MPV 11.2 fl (9.4-12.4); NEUTROPHIL # (ANC) 7.2 K/uL (1.4-9.0); NEUTROPHIL % 80.1 %; NRBC % 0 /100WBC (0-0.00); PLATELET COUNT 159 K/uL (150-450); RBC 4.06 M/uL (3.50-5.50); RDW-CV 12.5 % (11.9-14.6)
[2016-08-10 05:35] LABS: ANION GAP 14.3 (10.0-19.0); CALCIUM 8.1 mg/dL (8.5-10.5); CREATININE 1.4 mg/dL (0.6-1.3); POTASSIUM 4.3 mMol/L (3.7-5.1)
--- NOTE | 2016-08-10 15:28 | NUR ---
Patient is alert and oriented, VSS, on room air. 1 assist with gait belt, ambulated in the halls once already will try for 2 more before shift change. Regular diet for supper. IVs to bilateral forearms are saline locked. Uses urinal to void, nieves was removed this AM. Incision and lap sites x3 are glued. Dressing to neck is clean, dry and intact. ACHS accucheck with no SSI. [place] given last around 1230, will give another dose before shift change.
--- NOTE | 2016-08-10 17:42 | NUR ---
SPOKE TO PATIENT AND HIS FAMILY AT THE BEDSIDE. INTRODUCED CM AND OUR ROLE. PATIENT LIVES IN OWN HOME WITH SPOUSE AND HE IS PLANNING ON RETURNING HOME ONCE HE IS READY FOR DISCHARGE. PATIENT DOES NOT ANTICIPATE ANY DISCHARGE NEEDS AT THIS TIME.
--- NOTE | 2016-08-11 03:37 | NUR ---
Significant Event:PT AAOX3.PLEASANT WITH STAFF AND CARES. DENIES PAIN DURING SHIFT. UP WITH STAFF 1 ASSIST. WALKS IN [place] 2X.INCSION SITES CLEAN AND CLUE INTACT.BOWEL SOUND HYPOACTIVE,DENIES PASSING GAS. BLOOD SUGAR 214 AT HS. SALINE LOCKS TO BILATERAL FOREARMS. BOTH IV SITES FLUSH WELL WITH NO COMPLICATIONS NOTED. TAKES MEDICAITON WHOLE.USES CALL LIGHT APPROP. Follow up:
[2016-08-11 05:26] LABS: ANION GAP 12.4 (10.0-19.0); CALCIUM 8.8 mg/dL (8.5-10.5); CREATININE 1.5 mg/dL (0.6-1.3); POTASSIUM 4.4 mMol/L (3.7-5.1)
--- NOTE | 2016-08-11 18:02 | NUR ---
Significant Event:Is A/O.Rt.side abd.incision,glued.No flatus or stools yet.Voiding well.Has been amb in [place] with walker & 1 assist.Gets pretty SOB on activity.Had [place] x2---last at 1300.Is to be NPO after midnoc for bronch at 0900 tomorrow.No N/V. Follow up:
--- NOTE | 2016-08-12 03:45 | NUR ---
Significant Event:PT AAOX3.PLEASANT WITH STAFF AND CARES.UP WITH 1 ASSIST WALKER GAITBELT. WALKS IN [place] X2.SOB WITH ACTIVITY.NORCO GIVEN AT HS FOR ABDOMINAL PAIN.HAS RESTED WELL SINCE THAT.BOWELS SOUNDS HYPOACTIVE.ABDOMEN SLIGHTLY DISTENDED.DENIES PASSING GAS.SALINE LOCK TO BILATERAL FOREARMS. TAKES MEDICAITON WHOLE WITH NO COMPLICATIONS. USES BEDSIDE URINAL AT NIGH WITH ADEQUATE OUTPUT NOTED.HAS BEEN NPO SINCE MIDNIGHT. WILL HAVE BRONCHOSCOPY TODAY AT 1PM.MAY HAVE SMALL SIPS OF WATER UNITL 8AM. Follow up:
[2016-08-12 05:56] LABS: BASOPHIL % 0.1 %; EOSINOPHIL # 0.1 K/uL (0.0-0.5); EOSINOPHIL % 0.9 %; HEMOGLOBIN 11.2 g/dL (11.0-16.0); IMMATURE GRANULOCYTE % 0.4 %; LYMPHOCYTE # 0.8 K/uL (0.8-4.0); LYMPHOCYTE % 11.1 %; MCH 28.6 pg (27.0-34.0); MCHC 33.9 gm/dL (32.0-36.5); MCV 84.4 fl (83.0-98.0); MONOCYTE # 0.8 K/uL (0.0-1.0); MONOCYTE % 10.7 %; MPV 10.7 fl (9.4-12.4); NEUTROPHIL # (ANC) 5.7 K/uL (1.4-9.0); NEUTROPHIL % 76.8 %; NRBC % 0 /100WBC (0-0.00); PLATELET COUNT 149 K/uL (150-450); RBC 3.91 M/uL (3.50-5.50); RDW-CV 12.4 % (11.9-14.6); WBC 7.5 K/uL (4.0-11.0)
[2016-08-12 06:08] LABS: ANION GAP 13.3 (10.0-19.0); CALCIUM 8.9 mg/dL (8.5-10.5); CREATININE 1.4 mg/dL (0.6-1.3); POTASSIUM 4.3 mMol/L (3.7-5.1)
--- NOTE | 2016-08-12 14:53 | NUR ---
Significant Event: Pt c/o intermittent right lower incisional pain, good relief with norco. NPO. Amb in [place] x2 so far, not passing flatus and hypoactive bowel sounds. Left floor at 1200 for lung biopsy, not back at this time. Possible dc today if pt starts to pass flatus. To text Dr. Pierce at 1700 whether or not pt will dc or wait another day. Mild SOB with activity. Pt is in AFIB, pulse this am was 75-98 and briefly up to 178 via bp monitor, asymptomatic. MD notified, not concerned at this time as he has been in AFIB for a while. Irregular heart rythym noted. Up with standby assist. Incision plus stab sites with glue are approximated. Follow up:
--- NOTE | 2016-08-13 03:46 | NUR ---
Significant Event:PT AAOX3.VERY PLEASANT WITH STAFF AND CARES.UP WITH 1 ASSIST GAITBELT WALKER. WALKS IN [place] ONE TIME AND WALKS IN ROOM.NO CALLS FROM TELE.PT PULSE 88-99 DURING SHIFT. LAST PAIN PILL GIVEN AT 2100.HAS RESTED WELL SINCE THAT. USES BEDSIDE URINAL AT NIGHT. BOWEL SOUND HYPOACTIVE HOWEVER HAS NOT PASSES GAS YET.IV FLUIDS 1/2 NS STARTED AT 75ML/HR.RESP TREATMENT EVERY 4 HOURS,PT LUNGS WHEEZE/COARSE AT TIMES.PT ENCOURAGES TO COUGH. ABDOMEN SLIGHTLY DISTENDED,SURGICAL SITES GLUED AND INTACT.PT AT BEDSIDE DURING SHIFT. IV TO LEFT FOREARM DC'D DUE TO LEAKING. RIGHT FOREARM RUNNING FLUIDS. Follow up:
[2016-08-13] MEDS ORDERED: COLACE100 MG PO (15:36)
[2016-08-13] MEDS ORDERED: DULERA 100 MCG/51 EA INH (15:39)
[2016-08-13] MEDS ORDERED: ELIQUIS5 MG PO (15:44)
[2016-08-13] MEDS ORDERED: NORCO 5-325 TA1 EACH PO (15:45)
--- NOTE | 2016-08-13 15:52 | NUR ---
Significant Event: Pt c/o intermittent right flank incisional pain, good relief with [place]. Up with 1 assist. Amb in [place] x2, passing flatus and bowel sounds improving. Tolerating diet fairly well. Dr Chauhan consulted. Pt ok'd to discharge by all physician's on his case. MD aware of respiratory cultures, no new orders. Lungs sounds continue to be wheezy throughout, encouraged coughing and IS. Will dc to home later today. Follow up:
--- NOTE | 2016-08-13 16:30 | NUR ---
D:Orders received for patient to be dismissed. I:Dismissal instructions were prepared and reviewed with the patient and his family. The following information was reviewed: diet and activity recommendations for home, incisional care for home, s/s of infection to watch for and to report to MD if they occur, home medications/new prescription medications, and plans for follow up appointments with Dr. Arevalo, Dr. Pierce, Dr. Turner and Dr. Catarino Cesar teaching information reviewed with the patient and given to pt on the following topics: Discharge Instructions for Nephrectomy, Preventing DVT, [place], Dulera, Eliquis, and Colace. R:The patient and his family verbalized understanding of above teaching and denied further questions at the time. P:The patient's primary nurse was informed that the dismissal teaching had been completed. She was going to take the information and prescriptions in for the patient to sign and have. The patient will be dismissed shortly. Agata ARENAS
== END 2016-08-13 16:30 | disposition disaster alternative care site (69) | DRG 657 ==
LOC: GMSU 08-09 05:44
PROVIDERS: ADMIT Urology
PROC: 0TT04ZZ Resection of Right Kidney, Percutaneous Endoscopic Approach (ICD-10-PCS; principal; 2016-08-09)
PROC: 0WJC4ZZ Inspection of Mediastinum, Percutaneous Endoscopic Approach (ICD-10-PCS; 2016-08-09)
PROC: 07B73ZX Excision of Thorax Lymphatic, Percutaneous Approach, Diagnostic (ICD-10-PCS; 2016-08-12)
PROC: 0B9B8ZX Drainage of Left Lower Lobe Bronchus, Via Natural or Artificial Opening Endoscopic, Diagnostic (ICD-10-PCS; 2016-08-12)
DX: C64.1 Malignant neoplasm of right kidney, except renal pelvis (principal); N13.8 Other obstructive and reflux uropathy; I49.5 Sick sinus syndrome; I48.2 Chronic atrial fibrillation; E11.9 Type 2 diabetes mellitus without complications; E78.5 Hyperlipidemia, unspecified; M10.9 Gout, unspecified; N40.1 Benign prostatic hyperplasia with lower urinary tract symptoms; R33.9 Retention of urine, unspecified; J45.909 Unspecified asthma, uncomplicated; F17.220 Nicotine dependence, chewing tobacco, uncomplicated; Z96.652 Presence of left artificial knee joint; G89.29 Other chronic pain; K59.00 Constipation, unspecified; Z79.01 Long term (current) use of anticoagulants; R59.0 Localized enlarged lymph nodes; R91.8 Other nonspecific abnormal finding of lung field
CPT/HCPCS: J0690; J1100; J1170; J2001; J2405; J3010; J3360; J7030

== ENCOUNTER → 2016-09-10 | Outpatient (CLI) | payer MEDICARE, BC ==
[~2016-09-10] MED LIST changes: +COLACE100 MG PO; +DULERA 100 MCG/51 EA INH; +ELIQUIS5 MG PO; +NORCO 5-325 TA1 EACH PO
[2016-09-10 10:40] LABS: ANION GAP 11.6 (10.0-19.0); CALCIUM 9.4 mg/dL (8.5-10.5); CREATININE 1.4 mg/dL (0.6-1.3); POTASSIUM 4.6 mMol/L (3.7-5.1)
== END ==
LOC: LGSOS 10:19
PROVIDERS: Internal Medicine Interventional Cardiology
DX: I48.0 Paroxysmal atrial fibrillation (principal)